=== PATIENT | male | born 1970 | race Caucasian/White ===

== ENCOUNTER 2019-11-12 10:10 | Day surgery (SDC) | payer OTHER ==
[2019-11-07 12:22] VITALS: BMI 31.1
[2019-11-12] MEDS ORDERED: ONDANSETRON 4 MG/2 ML VIAL IVPUSH PRN (10:20)
[2019-11-12] MEDS ORDERED: oxyCODONE HCL 5 MG TABLET PO PRN (10:20)
[2019-11-12] MEDS ORDERED: LACTATED RINGERS SOLUTION 1,000 ML IV SCH (10:30)
[2019-11-12] MEDS ORDERED: ONDANSETRON 4 MG/2 ML VIAL ONE ×2 (10:39→13:25)
[2019-11-12] MEDS ORDERED: MIDAZOLAM HCL 2 MG/2 ML SINGLE DOSE VIAL ONE ×2 (10:40→12:38)
[2019-11-12] MEDS ORDERED: PROPOFOL 20 ML ONE (10:41)
[2019-11-12] MEDS ORDERED: LIDOCAINE HCL 2% (20ML MULTI-DOSE VIAL) ONE (11:18)
[2019-11-12] MEDS ORDERED: SUCCINYLCHOLINE CHLORIDE 200 MG/10 ML SYRINGE ONE (13:00)
[2019-11-12] MEDS ORDERED: oxyCODONE HCL 5 MG TABLET ONE (14:49)
[2019-11-12 15:06] VITALS: PULSE 56
[2019-11-12 15:41] VITALS: BP 110/56; TEMP 98
== END 2019-11-12 15:15 | disposition home or self-care (01) ==
LOC: FASU 10:10
PROVIDERS: ATTEND Orthopaedic Surgery Hand Surgery
PROC: 0LQ70ZZ Repair Right Hand Tendon, Open Approach (ICD-10-PCS; principal; 2019-11-12 11:45)
DX: S66.126A Laceration of flexor muscle, fascia and tendon of right little finger at wrist and hand level, initial encounter (principal); X58.XXXA Exposure to other specified factors, initial encounter; Y93.9 Activity, unspecified; Y92.9 Unspecified place or not applicable
CPT/HCPCS: 94760